=== PATIENT | female | born 1995 | race Asian ===

== ENCOUNTER 2017-11-15 11:50 | Emergency (ER) | payer MEDICAID, OTHER ==
[~2017-11-15] VITALS: Ht 152.4 cm; Wt 51.8 kg
[2017-11-15] MEDS ORDERED: ONDANSETRON HCL 4 MG TABLET PO ONE (15:15)
[2017-11-15 16:38] VITALS: BP 125/76
== END 2017-11-15 16:36 | disposition home or self-care (01) ==
LOC: EMS 11:51 → EDSEX 11:51 → EMS 16:36
DX: T74.21XA Adult sexual abuse, confirmed, initial encounter (principal); S71.111A Laceration without foreign body, right thigh, initial encounter; S70.11XA Contusion of right thigh, initial encounter; S40.011A Contusion of right shoulder, initial encounter; Y93.89 Activity, other specified; Y92.89 Other specified places as the place of occurrence of the external cause; Y99.8 Other external cause status
CPT/HCPCS: 99283; Q0162